=== PATIENT | male | born 1965 | race Two or more races ===

== ENCOUNTER 2022-04-17 21:37 | Emergency (ER) | payer BC, OTHER ==
[~2022-04-17] VITALS: Ht 177.8 cm; Wt 80.0 kg
[2022-04-17 22:05] VITALS: BP 137/79
[2022-04-18] MEDS ORDERED: AZIT250T8 PO (00:24)
[2022-04-18] MEDS ORDERED: MONT-8 PO (00:24)
== END 2022-04-18 00:43 | disposition home or self-care (01) ==
LOC: ER 21:37
DX: J32.9 Chronic sinusitis, unspecified (principal)

== ENCOUNTER 2022-09-03 00:42 | Emergency (ER) | payer BC, OTHER ==
[~2022-09-03] VITALS: Ht 177.8 cm; Wt 86.1 kg
[~2022-09-03 00:42] MED LIST: AZIT250T8 PO; MONT-8 PO
[2022-09-03 05:22] VITALS: BP 139/76
== END 2022-09-03 05:38 | disposition home or self-care (01) ==
LOC: ER 00:42
DX: S46.912A Strain of unspecified muscle, fascia and tendon at shoulder and upper arm level, left arm, initial encounter (principal); Z79.2 Long term (current) use of antibiotics; Z79.899 Other long term (current) drug therapy; X58.XXXA Exposure to other specified factors, initial encounter; Y93.89 Activity, other specified; Y92.89 Other specified places as the place of occurrence of the external cause; Y99.8 Other external cause status
CPT/HCPCS: 73030